=== PATIENT | female | born 1955 | race Caucasian/White ===

== ENCOUNTER → 2020-01-04 | Outpatient (CLI) | payer MEDICARE, OTHER ==
--- NOTE | 2020-01-04 15:18 | RAD ---
Indications: Right knee and right ankle and right foot pain. TWO-VIEW RIGHT KNEE STUDY: No acute fracture or dislocation or lytic process is seen. There is mild degenerative joint space narrowing of the medial and lateral tibiofemoral joint compartments without spurring. The patellofemoral joint compartment is unremarkable. No right knee joint effusion is seen. IMPRESSION: Mild degenerative joint space narrowing of the medial and lateral tibiofemoral joint compartments of the right knee. TWO-VIEW RIGHT ANKLE STUDY: No acute fracture or dislocation or lytic process is seen. The mortise ankle joint is intact. 2 VIEW STUDY OF THE RIGHT FOOT: There is a nondisplaced dorsal avulsion fracture of the head of the talus. No other fracture is evident. No dislocation or lytic process is seen. No periosteal reaction is evident. 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 No plantar spur of the calcaneus is seen. IMPRESSION: Dorsal avulsion fracture of the head of the talus. Electronically signed by: Mohsen Olivera MD (01/04/2020 3:16 PM) [facility]
== END | disposition home or self-care (01) ==
LOC: PMG 14:41
PROVIDERS: ATTEND Physician Assistant
DX: S92.124A Nondisplaced fracture of body of right talus, initial encounter for closed fracture (principal); M19.071 Primary osteoarthritis, right ankle and foot; M25.861 Other specified joint disorders, right knee; M17.11 Unilateral primary osteoarthritis, right knee; X58.XXXA Exposure to other specified factors, initial encounter; Y93.89 Activity, other specified; Y92.89 Other specified places as the place of occurrence of the external cause; Y99.8 Other external cause status
CPT/HCPCS: 73560; 73600; 73620

== ENCOUNTER → 2020-01-24 | Outpatient (CLI) | payer MEDICARE, OTHER ==
--- NOTE | 2020-01-24 11:22 | RAD ---
FOOT RIGHT 3V DATE: 01/24/2020 12:00 AM INDICATION: Foot pain COMPARISON: None. FINDINGS: Bones: There is no evidence of acute fracture or dislocation. Joints: The joint spaces are normal. Miscellaneous: None. IMPRESSION: No acute osseous abnormality. Electronically signed by: Pastor Brooke MD (01/24/2020 11:19 AM) [id number]
== END | disposition home or self-care (01) ==
LOC: DXRAD 10:40
PROVIDERS: ATTEND Podiatrist Foot & Ankle Surgery
DX: S92.121A Displaced fracture of body of right talus, initial encounter for closed fracture (principal); X58.XXXA Exposure to other specified factors, initial encounter; Y93.89 Activity, other specified; Y92.89 Other specified places as the place of occurrence of the external cause; Y99.8 Other external cause status
CPT/HCPCS: 73630